=== PATIENT | male | born 1970 | race Hispanic/Latino ===

== ENCOUNTER → 2017-01-22 | Outpatient (CLI) | payer MEDICARE, OTHER ==
[~2017-01-22] MED LIST: BACT800T OR; CEPACOL OR; COLA100C2 OR; PERC5TAB8 OR
== END ==
LOC: M OUTALCOH 07:43
PROVIDERS: ATTEND Psychiatry & Neurology Psychiatry
DX: Z13.9 Encounter for screening, unspecified (principal); F10.20 Alcohol dependence, uncomplicated

== ENCOUNTER → 2017-02-20 | Outpatient (RCR) | payer MEDICARE, OTHER | LOC: M OUTALCOH 01-31 14:00 | PROVIDERS: ATTEND Psychiatry & Neurology Psychiatry | DX: F10.20 Alcohol dependence, uncomplicated (principal) ==

== ENCOUNTER 2017-03-20 15:00 | Outpatient (RCR) | payer MEDICARE, OTHER | END 2017-03-22 | LOC: M OUTALCOH 15:00 | PROVIDERS: ATTEND Psychiatry & Neurology Psychiatry | DX: F10.20 Alcohol dependence, uncomplicated (principal) ==

== ENCOUNTER 2017-04-17 15:00 | Outpatient (RCR) | payer MEDICARE, OTHER | END 2017-04-22 | LOC: M OUTALCOH 15:00 | PROVIDERS: ATTEND Psychiatry & Neurology Psychiatry | DX: F10.20 Alcohol dependence, uncomplicated (principal) ==

== ENCOUNTER 2017-05-01 12:14 | Outpatient (RCR) | payer MEDICARE, OTHER | END 2017-05-23 | LOC: M OUTALCOH 12:14 | PROVIDERS: ATTEND Psychiatry & Neurology Psychiatry | DX: F10.20 Alcohol dependence, uncomplicated (principal) ==

== ENCOUNTER → 2018-12-09 | Outpatient (CLI) | payer MEDICARE, OTHER ==
[2018-12-09 10:09] LABS: BASO # 0.1 10^3/uL (0.0-0.2); BASO % 1.2 % (0.0-1.0); EOS # 0.1 10^3/uL (0.0-0.50); EOS % 2.9 % (0.0-3.0); HEMATOCRIT 41.2 % (42.0-52.0); HEMOGLOBIN 14.4 g/dl (13.5-17.5); LYMPH # 1.4 10^3/uL (1.5-4.5); LYMPH % 34.7 % (24.0-44.0); MEAN CORPUSCULAR HEMOGLOBIN 31.4 pg (27.0-33.0); MEAN CORPUSCULAR VOLUME 89.8 fl (80.0-96.0); MONO # 0.5 10^3/uL (0.0-0.8); MONO % 12.8 % (0.0-5.0); NEUTROPHILS % 48.2 % (36.0-66.0); PLATELET COUNT, AUTOMATED 208 10^3/uL (150-450); RED BLOOD COUNT 4.59 10^6/uL (4.30-6.10); WHITE BLOOD COUNT 4.2 10^3/uL (4.0-10.0)
[2018-12-09 10:50] LABS: ALBUMIN 3.7 GM/DL (3.2-5.2); ALT/SGPT 110 U/L (12-78); BILIRUBIN,TOTAL 0.5 MG/DL (0.2-1.0); BLOOD UREA NITROGEN 12 MG/DL (7-18); CALCIUM LEVEL 8.7 MG/DL (8.5-10.1); CARBON DIOXIDE LEVEL 28 MEQ/L (21-32); CHLORIDE LEVEL 105 MEQ/L (98-107); CREATININE FOR GFR 0.81 MG/DL (0.70-1.30); FOLATE 14.8 NG/ML; GLOMERULAR FILTRATION RATE > 60.0 (>60); GLUCOSE, FASTING 97 MG/DL (70-100); POTASSIUM SERUM 4.2 MEQ/L (3.5-5.1); RHEUMATOID FACTOR QUANT < 10.0 IU/ML (<15.0); SODIUM LEVEL 138 MEQ/L (136-145); TOTAL PROTEIN 7.5 GM/DL (6.4-8.2); VITAMIN B12 LEVEL 730 PG/ML
[2018-12-09 11:34] LABS: ERYTHROCYTE SEDIMENTATION RATE 10 mm/hr (0-15)
[2018-12-10 10:43] LABS: DRVV SCREEN 40.9 SEC
[2018-12-10 11:22] LABS: ANTI DOUBLE STRAND-DNA AB 1 IU/mL (0-9); ANTINUCLEAR ANTIBODIES DIRECT Negative (Negative); SJOGREN'S ANTI SS-A <0.2 AI (0.0-0.9); SJOGREN'S ANTI SS-B <0.2 AI (0.0-0.9)
[2018-12-11 10:27] LABS: ALBUMIN 4.19 GM/DL (3.29-5.55); ALBUMIN % 55.8 % (55.8-66.1); ALPHA-1-GLOBULIN % 3.5 % (2.9-4.9); ALPHA-1-GLOBULINS 0.26 GM/DL (0.17-0.41); ALPHA-2-GLOBULINS 0.73 GM/DL (0.42-0.99); ALPHA-2-GLOBULINS % 9.7 % (7.1-11.8); BETA-1-GLOBULINS % 6.6 % (4.7-7.2); BETA-2-GLOBULINS 0.49 GM/DL (0.19-0.55); BETA-2-GLOBULINS % 6.5 % (3.2-6.5); GAMMA GLOBULIN % 17.9 % (11.1-18.8); GAMMA GLOBULINS 1.34 GM/DL (0.65-1.58)
[2018-12-12 08:06] LABS: VITAMIN E(ALPHA TOCOPHEROL) 7.5 mg/L (7.0-25.1); VITAMIN E(GAMMA TOCOPHEROL) 1.3 mg/L (0.5-5.5)
[2018-12-13 08:06] LABS: VITAMIN B1 LEVEL WHOLE BLOOD 91.5 nmol/L (66.5-200.0); VITAMIN B6,PYRIDOXAL PHOSPHATE 19.3 ug/L (5.3-46.7)
== END ==
LOC: M LAB 09:21
PROVIDERS: ATTEND Psychiatry & Neurology Neurology
DX: R51 Headache (principal); G31.84 Mild cognitive impairment of uncertain or unknown etiology

== ENCOUNTER → 2018-12-11 | Outpatient (CLI) | payer MEDICARE, OTHER ==
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
== END ==
LOC: M RAD 10:43
PROVIDERS: ATTEND Psychiatry & Neurology Neurology
DX: Z87.821 Personal history of retained foreign body fully removed (principal); M89.38 Hypertrophy of bone, other site; S70.2 Other superficial injuries of hip; X58.XXXD Exposure to other specified factors, subsequent encounter; Y92.89 Other specified places as the place of occurrence of the external cause

== ENCOUNTER → 2019-01-16 | Outpatient (CLI) | payer MEDICARE, OTHER ==
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
== END ==
LOC: M PLARAD 09:09
PROVIDERS: ATTEND Psychiatry & Neurology Neurology
DX: S15.8XXA Injury of other specified blood vessels at neck level, initial encounter (principal); X58.XXXA Exposure to other specified factors, initial encounter; Y92.89 Other specified places as the place of occurrence of the external cause; G44.209 Tension-type headache, unspecified, not intractable; R41.3 Other amnesia; I67.82 Cerebral ischemia; I77.9 Disorder of arteries and arterioles, unspecified

== ENCOUNTER → 2019-09-07 | Outpatient (CLI) | payer MEDICARE, OTHER, MEDICAID ==
--- NOTE | 2019-09-07 10:49 | REP ---
MRI cervical spine: 09/07/2019. Indication: Neck pain. Comparison: None. Technique: Multiplanar shortened long TR sequences of the cervical spine were obtained without IV Gadolinium. Findings: There is straightening of the cervical lordosis. The patient is status post C4 - C7 ACDF. No worrisome marrow or cord signal is present. The vertebral artery flow voids are unremarkable. C2/C3: Left greater than right facet arthropathy is present with severe left neural foraminal narrowing. C3/C4: Diffuse disc bulge and bilateral facet arthropathy are present with moderate to severe bilateral neural foraminal narrowing, more pronounced on the left. There is mild narrowing of the spinal canal. C4/C5: There is no focal disc herniation or significant spinal canal / neural foraminal narrowing. C5/C6: There is a left paracentral disc protrusion with flattening of the left ventral lateral cord. The neural foramen are patent. C6/C7: Left greater than right uncovertebral and facet hypertrophy are present with moderate to severe left neural foraminal narrowing. C7/T1: There is no focal disc herniation or significant spinal canal / neural foraminal narrowing. Impression: Multilevel degenerative and postoperative sequelae as described without severe spinal canal narrowing. Electronically Signed by Ishmael Gibbs DO 09/07/2019 10:41 A
== END ==
LOC: M RAD 07:10
PROVIDERS: ATTEND Orthopaedic Surgery
DX: M54.12 Radiculopathy, cervical region (principal)

== ENCOUNTER → 2020-04-26 | Outpatient (CLI) | payer MEDICARE, OTHER, MEDICAID | LOC: M OUTALCOH 09:00 | PROVIDERS: ATTEND Psychiatry & Neurology Addiction Medicine | DX: Z03.89 Encounter for observation for other suspected diseases and conditions ruled out (principal) ==

== ENCOUNTER 2020-05-19 10:00 | Outpatient (RCR) | payer MEDICARE, OTHER, MEDICAID | END 2020-05-23 | LOC: M OUTALCOH 10:00 | PROVIDERS: ATTEND Psychiatry & Neurology Addiction Medicine | DX: F10.20 Alcohol dependence, uncomplicated (principal) | CPT/HCPCS: 90834; 90853; H0050 ==

== ENCOUNTER 2020-06-17 13:00 | Outpatient (RCR) | payer MEDICARE, OTHER, MEDICAID | END 2020-06-22 | LOC: M OUTALCOH 13:00 | PROVIDERS: ATTEND Psychiatry & Neurology Addiction Medicine | DX: F10.20 Alcohol dependence, uncomplicated (principal) ==

== ENCOUNTER 2020-07-20 08:00 | Outpatient (RCR) | payer MEDICARE, OTHER, MEDICAID | END 2020-07-23 | LOC: M OUTALCOH 08:00 | PROVIDERS: ATTEND Psychiatry & Neurology Addiction Medicine | DX: F10.20 Alcohol dependence, uncomplicated (principal) ==

== ENCOUNTER 2020-08-15 08:00 | Outpatient (RCR) | payer MEDICARE, OTHER, MEDICAID | END 2020-08-22 | LOC: M OUTALCOH 08:00 | PROVIDERS: ATTEND Psychiatry & Neurology Addiction Medicine | DX: F10.10 Alcohol abuse, uncomplicated (principal) ==

== ENCOUNTER → 2020-08-27 | Outpatient (CLI) | payer SELFPAY | LOC: M LABSMTC 10:30 | PROVIDERS: ATTEND Pediatrics | DX: Z20.828 Contact with and (suspected) exposure to other viral communicable diseases (principal) ==

== ENCOUNTER → 2020-10-02 | Outpatient (CLI) | payer SELFPAY | LOC: M LABSMTC 08:34 | PROVIDERS: ATTEND Pediatrics | DX: Z20.822 Contact with and (suspected) exposure to COVID-19 (principal) ==

== ENCOUNTER 2020-11-24 00:43 | Emergency (ER) | payer MEDICARE, OTHER, MEDICAID ==
[~2020-11-24] VITALS: Ht 167.6 cm; Wt 84.1 kg
[2020-11-24] MEDS ORDERED: LAMO100T3 PO (01:11)
[2020-11-24] MEDS ORDERED: RITA40CA PO (01:11)
[2020-11-24] MEDS ORDERED: PRAZ5CAP PO (01:11)
[2020-11-24 01:44] LABS: BASO # 0.1 10^3/uL (0.0-0.2); BASO % 0.8 % (0.0-1.0); EOS # 0.1 10^3/uL (0.0-0.5); EOS % 0.9 % (0.0-3.0); HEMATOCRIT 39.2 % (42.0-52.0); HEMOGLOBIN 13.6 g/dl (13.5-17.5); LYMPH % 31.1 % (24.0-44.0); MEAN CORPUSCULAR HEMOGLOBIN 30.4 pg (27.0-33.0); MEAN CORPUSCULAR HGB CONC 34.7 g/dl (32.0-36.5); MEAN CORPUSCULAR VOLUME 87.7 fl (80.0-96.0); MONO # 0.5 10^3/uL (0.0-0.8); MONO % 7.2 % (2.0-8.0); NEUTROPHILS # 3.9 10^3/uL (1.5-8.5); NEUTROPHILS % 59.5 % (36.0-66.0); PLATELET COUNT, AUTOMATED 205 10^3/uL (150-450); RED BLOOD COUNT 4.47 10^6/uL (4.30-6.10); WHITE BLOOD COUNT 6.5 10^3/uL (4.0-10.0)
[2020-11-24 02:09] LABS: BLOOD UREA NITROGEN 15 MG/DL (7-18); CALCIUM LEVEL 8.7 MG/DL (8.5-10.1); CARBON DIOXIDE LEVEL 29 MEQ/L (21-32); CHLORIDE LEVEL 102 MEQ/L (98-107); CK-MB VALUE MASS 2.2 NG/ML (<3.6); CPK CREATINE PHOSPHOKINASE 278 U/L (39-308); CREATININE FOR GFR 0.83 MG/DL (0.70-1.30); ETHYL ALCOHOL (ETHANOL) < 0.003 % (0.000-0.010); GLOMERULAR FILTRATION RATE > 60.0 (>56); GLUCOSE, FASTING 151 MG/DL (70-100); MB/CK RELATIVE INDEX 0.79 (< OR =4); POTASSIUM SERUM 2.9 MEQ/L (3.5-5.1); SODIUM LEVEL 137 MEQ/L (136-145); TROPONIN I < 0.02 NG/ML (< 0.10)
--- NOTE | 2020-11-24 02:09 | REPVR ---
PROCEDURE INFORMATION: Exam: XR Chest Exam date and time: 11/24/2020 1:44 AM Age: 50 years old Clinical indication: Other: Dyspnea; Additional info: Dyspnea/cough TECHNIQUE: Imaging protocol: XR of the chest Views: 1 view. COMPARISON: No relevant prior studies available. FINDINGS: Lungs: Unremarkable. No consolidation. Pleural spaces: Unremarkable. No pleural effusion. No pneumothorax. Heart/Mediastinum: Unremarkable. No cardiomegaly. Bones/joints: Status post anterior cervical fusion. IMPRESSION: Negative chest. Electronically signed by: Brandan Song On 11/24/2020 02:10:28 AM
[2020-11-24] MEDS ORDERED: POTASSIUM CHLORIDE 10 MEQ SR TABLET PO ONE (02:35)
[2020-11-24 04:41] LABS: CK-MB VALUE MASS 1.9 NG/ML (<3.6); CPK CREATINE PHOSPHOKINASE 249 U/L (39-308); MB/CK RELATIVE INDEX 0.76 (< OR =4); TROPONIN I < 0.02 NG/ML (< 0.10)
[2020-11-24] MEDS ORDERED: ISOVUE-370 76% 100ML VIAL As Ordered ONE (04:48)
--- NOTE | 2020-11-24 05:11 | REPVR ---
PROCEDURE INFORMATION: Exam: CT Angiography Chest With Contrast Exam date and time: 11/24/2020 4:43 AM Age: 50 years old Clinical indication: Shortness of breath; Additional info: R/O pe TECHNIQUE: Imaging protocol: Computed tomographic angiography of the chest with contrast. 3D rendering (Not supervised by radiologist): MIP and/or 3D reconstructed images were created by the technologist. Radiation optimization: All CT scans at this facility use at least one of these dose optimization techniques: automated exposure control; mA and/or kV adjustment per patient size (includes targeted exams where dose is matched to clinical indication); or iterative reconstruction. Contrast material: ISO; Contrast volume: 75 ml; Contrast route: INTRAVENOUS (IV); COMPARISON: CR PORTABLE CHEST X-RAY 11/24/2020 1:45 AM FINDINGS: Pulmonary arteries: The main pulmonary artery measures 30 mm. No pulmonary embolism is identified. Aorta: The ascending thoracic aorta measures 31 mm. Lungs: Minimal bilateral lower lobe ground-glass infiltrates. Pleural spaces: Unremarkable. No pneumothorax. No pleural effusion. Heart: Unremarkable. No cardiomegaly. No pericardial effusion. Lymph nodes: Unremarkable. No enlarged lymph nodes. Liver: Probable left hepatic cyst measuring 30 mm with a Hounsfield measurement of 6. The liver attenuation is 13 Hounsfield units and the spleen is 59 Hounsfield units. Bones/joints: Unremarkable. No acute fracture. Soft tissues: Unremarkable. IMPRESSION: 1. Minimal bilateral lower lobe ground-glass infiltrates and possible dependent atelectasis. 2. Fatty infiltration of the liver. 3. Otherwise negative CTA chest. No pulmonary embolism is identified. Electronically signed by: Brandan Song On 11/24/2020 05:12:11 AM
[2020-11-24] MEDS ORDERED: K-TA1TAB PO (05:23)
[2020-11-24 05:30] VITALS: BP 141/71
--- NOTE | 2020-11-25 08:02 | ECGEPIP ---
[facility] - ED Test Date: 2020-11-24 Pat Name: AURA ROSARIO Department: Room: - Gender: Male Quantitative Analyst: SHAYY : 1970 Requested By: Reza Childers Order Number: [id number] Reading MD: Shruti Lynn Measurements Intervals [place] Rate: 92 P: 60 NC: 140 QRS: -15 QRSD: 94 T: 30 QT: 390 QTc: 482 Interpretive Statements Normal sinus rhythm NSTTW abnormalities Prolonged QT similar 11/24/20 0800 Electronically Signed on 11-25-2020 8:02:32 EST by Shruti Lynn
--- NOTE | 2020-11-25 08:02 | ECGEPIP ---
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
== END 2020-11-24 05:36 | disposition home or self-care (01) ==
LOC: M ED 00:43
DX: R06.00 Dyspnea, unspecified (principal); E87.6 Hypokalemia; K76.0 Fatty (change of) liver, not elsewhere classified; R42 Dizziness and giddiness; F10.10 Alcohol abuse, uncomplicated; F90.9 Attention-deficit hyperactivity disorder, unspecified type; F33.9 Major depressive disorder, recurrent, unspecified; Z88.6 Allergy status to analgesic agent; Z79.899 Other long term (current) drug therapy
CPT/HCPCS: 36415; 71045; 71275; 80048; 82077; 82550; 82553; 84484; 85025; 93005; 93041; 94760; 99285; Q9967

== ENCOUNTER 2020-12-06 00:38 | Emergency (ER) | payer MEDICARE, OTHER, MEDICAID ==
[~2020-12-06] VITALS: Ht 162.6 cm; Wt 81.8 kg
[~2020-12-06 00:38] MED LIST changes: +K-TA1TAB PO; +LAMO100T3 PO; +PRAZ5CAP PO; +RITA40CA PO
[2020-12-06] MEDS ORDERED: hydrOXYzine 25 MG TAB PO STA (01:13)
[2020-12-06 01:32] LABS: BASO # 0.1 10^3/uL (0.0-0.2); BASO % 1.1 % (0.0-1.0); EOS # 0.1 10^3/uL (0.0-0.5); EOS % 1.7 % (0.0-3.0); HEMATOCRIT 40.3 % (42.0-52.0); HEMOGLOBIN 14.4 g/dl (13.5-17.5); LYMPH # 2.1 10^3/uL (1.5-5.0); MEAN CORPUSCULAR HGB CONC 35.7 g/dl (32.0-36.5); MEAN CORPUSCULAR VOLUME 89.6 fl (80.0-96.0); MONO # 0.5 10^3/uL (0.0-0.8); MONO % 8.3 % (2.0-8.0); NEUTROPHILS # 3.5 10^3/uL (1.5-8.5); NEUTROPHILS % 55.7 % (36.0-66.0); PLATELET COUNT, AUTOMATED 237 10^3/uL (150-450); WHITE BLOOD COUNT 6.3 10^3/uL (4.0-10.0)
[2020-12-06 01:42] LABS: INR 0.98; PROTHROMBIN TIME 13.2 SECONDS (12.5-14.3)
[2020-12-06 02:08] LABS: ALBUMIN 3.5 GM/DL (3.2-5.2); ALT/SGPT 77 U/L (12-78); BILIRUBIN,DIRECT < 0.1 MG/DL (0.0-0.2); BILIRUBIN,TOTAL 0.3 MG/DL (0.2-1.0); BLOOD UREA NITROGEN 12 MG/DL (7-18); CALCIUM LEVEL 8.8 MG/DL (8.5-10.1); CARBON DIOXIDE LEVEL 29 MEQ/L (21-32); CHLORIDE LEVEL 103 MEQ/L (98-107); CK-MB VALUE MASS < 1.0 NG/ML (<3.6); CPK CREATINE PHOSPHOKINASE 144 U/L (39-308); CREATININE FOR GFR 0.81 MG/DL (0.70-1.30); GLOMERULAR FILTRATION RATE > 60.0 (>56); GLUCOSE, FASTING 152 MG/DL (70-100); MB/CK RELATIVE INDEX 0.69 (< OR =4); NT-PRO BNP 12 PG/ML (<125); POTASSIUM SERUM 3.6 MEQ/L (3.5-5.1); SODIUM LEVEL 137 MEQ/L (136-145); THYROXINE (T4) 8.5 UG/DL (4.5-12.0); TOTAL PROTEIN 6.9 GM/DL (6.4-8.2); TROPONIN I < 0.02 NG/ML (< 0.10)
--- NOTE | 2020-12-06 02:19 | REPVR ---
PROCEDURE INFORMATION: Exam: XR Chest Exam date and time: 12/06/2020 1:49 AM Age: 50 years old Clinical indication: Cough and dyspnea; Additional info: Dyspnea/cough TECHNIQUE: Imaging protocol: XR of the chest Views: 1 view. COMPARISON: CR PORTABLE CHEST X-RAY 11/24/2020 1:45 AM FINDINGS: Lungs: The lungs are unchanged. No interval infiltrates. Pleural spaces: Unremarkable. No pleural effusion. No pneumothorax. Heart/Mediastinum: The heart and mediastinum are unchanged considering lordotic projection. Bones/joints: Status post anterior fusion of the cervical spine. IMPRESSION: Negative chest without significant change from 11/24/2020. Electronically signed by: Brandan Song On 12/06/2020 02:19:19 AM
[2020-12-06 03:15] VITALS: BP 125/59
--- NOTE | 2020-12-06 08:10 | ECGEPIP ---
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
== END 2020-12-06 03:15 | disposition home or self-care (01) ==
LOC: M ED 00:38
DX: F41.9 Anxiety disorder, unspecified (principal); E78.5 Hyperlipidemia, unspecified; G47.33 Obstructive sleep apnea (adult) (pediatric); F43.10 Post-traumatic stress disorder, unspecified; Z88.6 Allergy status to analgesic agent; Z79.899 Other long term (current) drug therapy; Z87.891 Personal history of nicotine dependence

== ENCOUNTER 2021-04-13 06:35 | Emergency (ER) | payer MEDICARE, OTHER, MEDICAID ==
[~2021-04-13] VITALS: Ht 162.6 cm; Wt 87.4 kg
[2021-04-13 10:05] VITALS: BP 149/83
--- NOTE | 2021-04-13 17:33 | ECGEPIP ---
[facility] - ED Test Date: 2021-04-13 Pat Name: AURA ROSARIO Department: Room: - Gender: Male Data Security Coordinator: MANPREET : 1970 Requested By: Shruti Lynn Order Number: [id number] Reading MD: Samir Garcia Measurements Intervals [place] Rate: 70 P: 25 [place]: 144 QRS: -19 QRSD: 100 T: 1 QT: 424 QTc: 457 Interpretive Statements Normal sinus rhythm Nonspecific T wave abnormality Similar to tracing done 12-06-20 Electronically Signed on 04-13-2021 17:33:03 EDT by Samir Garcia
== END 2021-04-13 10:10 | disposition home or self-care (01) ==
LOC: M ED 06:35
DX: F43.0 Acute stress reaction (principal); Z79.899 Other long term (current) drug therapy; Z93.3 Colostomy status; Z87.891 Personal history of nicotine dependence

== ENCOUNTER 2021-04-21 17:34 | Emergency (ER) | payer MEDICARE, OTHER, MEDICAID ==
[~2021-04-21] VITALS: Ht 162.6 cm; Wt 86.4 kg
[2021-04-21] MEDS ORDERED: TRAZ1TAB14 PO (17:57)
[2021-04-21] MEDS ORDERED: ATOR40TA75 PO (17:58)
[2021-04-21 18:22] LABS: BASO # 0.1 10^3/uL (0.0-0.2); BASO % 1.4 % (0.0-1.0); EOS % 0.3 % (0.0-3.0); HEMATOCRIT 43.1 % (42.0-52.0); HEMOGLOBIN 15.3 g/dl (13.5-17.5); LYMPH # 1.3 10^3/uL (1.5-5.0); LYMPH % 18.6 % (24.0-44.0); MEAN CORPUSCULAR HEMOGLOBIN 31.9 pg (27.0-33.0); MEAN CORPUSCULAR HGB CONC 35.5 g/dl (32.0-36.5); MONO # 0.6 10^3/uL (0.0-0.8); MONO % 7.9 % (2.0-8.0); NEUTROPHILS % 71.7 % (36.0-66.0); PLATELET COUNT, AUTOMATED 209 10^3/uL (150-450); RED BLOOD COUNT 4.79 10^6/uL (4.30-6.10)
[2021-04-21 18:48] LABS: BLOOD UREA NITROGEN 13 MG/DL (7-18); CALCIUM LEVEL 8.9 MG/DL (8.5-10.1); CARBON DIOXIDE LEVEL 27 MEQ/L (21-32); CHLORIDE LEVEL 103 MEQ/L (98-107); CREATININE FOR GFR 0.74 MG/DL (0.70-1.30); GLOMERULAR FILTRATION RATE > 60.0 (>56); GLUCOSE, FASTING 111 MG/DL (70-100); SODIUM LEVEL 138 MEQ/L (136-145)
[2021-04-21] MEDS ORDERED: ISOVUE-370 76% 100ML VIAL As Ordered ONE (18:52)
[2021-04-21 19:47] LABS: ALBUMIN 3.7 GM/DL (3.2-5.2); ALT/SGPT 282 U/L (12-78); BILIRUBIN,DIRECT 0.2 MG/DL (0.0-0.2); BILIRUBIN,TOTAL 0.8 MG/DL (0.2-1.0); ETHYL ALCOHOL (ETHANOL) < 0.003 % (0.000-0.010); TOTAL PROTEIN 7.5 GM/DL (6.4-8.2)
[2021-04-21] MEDS ORDERED: GI COCKTAIL 50ML BTL(HYOSCYAMINE/MAALOX/LIDOCAINE VISCOUS)(1:3:1) PO ONE (22:25)
[2021-04-22 02:00] VITALS: BP 132/82
== END 2021-04-22 02:13 | disposition home or self-care (01) ==
LOC: M ED 17:34 → EDBD 17:34 → M ED 04-22 02:13
DX: R07.9 Chest pain, unspecified (principal); K76.0 Fatty (change of) liver, not elsewhere classified; J44.9 Chronic obstructive pulmonary disease, unspecified; Z88.6 Allergy status to analgesic agent
CPT/HCPCS: 36415; 71045; 71275; 80048; 80076; 82077; 84484; 85025; 93005; 93041; 94760; 99285; Q9967

== ENCOUNTER 2021-05-10 16:24 | Emergency (ER) | payer MEDICARE, OTHER, MEDICAID ==
[~2021-05-10] VITALS: Ht 162.6 cm; Wt 83.6 kg
[2021-05-10 16:24] VITALS: BP 190/96
[~2021-05-10 16:24] MED LIST changes: +ATOR40TA75 PO; +TRAZ1TAB14 PO
== END 2021-05-10 17:59 | disposition left against medical advice (07) ==
LOC: M ED 16:24
DX: Z53.21 Procedure and treatment not carried out due to patient leaving prior to being seen by health care provider (principal)

== ENCOUNTER 2021-05-10 20:55 | Emergency (ER) | payer MEDICARE, OTHER, MEDICAID ==
[~2021-05-10] VITALS: Ht 162.6 cm; Wt 84.0 kg
[2021-05-10 21:55] LABS: BASO # 0.1 10^3/uL (0.0-0.2); BASO % 1.1 % (0.0-1.0); HEMATOCRIT 43.6 % (42.0-52.0); HEMOGLOBIN 15.4 g/dl (13.5-17.5); LYMPH # 1.4 10^3/uL (1.5-5.0); LYMPH % 17.5 % (24.0-44.0); MEAN CORPUSCULAR HEMOGLOBIN 31.8 pg (27.0-33.0); MEAN CORPUSCULAR HGB CONC 35.3 g/dl (32.0-36.5); MEAN CORPUSCULAR VOLUME 89.9 fl (80.0-96.0); MONO # 0.6 10^3/uL (0.0-0.8); MONO % 7.6 % (2.0-8.0); NEUTROPHILS # 5.8 10^3/uL (1.5-8.5); NEUTROPHILS % 73.5 % (36.0-66.0); PLATELET COUNT, AUTOMATED 255 10^3/uL (150-450); RED BLOOD COUNT 4.85 10^6/uL (4.30-6.10); WHITE BLOOD COUNT 7.9 10^3/uL (4.0-10.0)
[2021-05-10 22:09] LABS: INR 1.09; PROTHROMBIN TIME 14.5 SECONDS (12.7-14.5)
[2021-05-10 22:27] LABS: ALT/SGPT 167 U/L (12-78); BILIRUBIN,DIRECT 0.2 MG/DL (0.0-0.2); BILIRUBIN,TOTAL 0.9 MG/DL (0.2-1.0); BLOOD UREA NITROGEN 11 MG/DL (7-18); CALCIUM LEVEL 9.3 MG/DL (8.5-10.1); CARBON DIOXIDE LEVEL 27 MEQ/L (21-32); CHLORIDE LEVEL 101 MEQ/L (98-107); CK-MB VALUE MASS 2.6 NG/ML (<3.6); CPK CREATINE PHOSPHOKINASE 361 U/L (39-308); CREATININE FOR GFR 0.78 MG/DL (0.70-1.30); GLOMERULAR FILTRATION RATE > 60.0 (>56); GLUCOSE, FASTING 106 MG/DL (70-100); LIPASE 97 U/L (73-393); MB/CK RELATIVE INDEX 0.72 (< OR =4); POTASSIUM SERUM 3.8 MEQ/L (3.5-5.1); SODIUM LEVEL 137 MEQ/L (136-145); TOTAL PROTEIN 7.7 GM/DL (6.4-8.2); TROPONIN I < 0.02 NG/ML (< 0.10)
--- NOTE | 2021-05-10 23:29 | REPVR ---
PROCEDURE INFORMATION: Exam: XR Chest Exam date and time: 05/10/2021 10:58 PM Age: 51 years old Clinical indication: Chest wall pain; Additional info: Chest pain TECHNIQUE: Imaging protocol: XR of the chest. Views: 1 view. COMPARISON: CR PORTABLE CHEST X-RAY 04/21/2021 6:12 PM FINDINGS: Lungs: There is no pulmonary vascular congestion. There is no evidence of focal parenchymal consolidation. Pleural spaces: There are no pleural effusions. There is no evidence of pneumothorax. Heart/Mediastinum: The cardiac silhouette is within normal limits. Bones/joints: No acute osseous abnormality is identified. IMPRESSION: No acute cardiopulmonary disease identified. Electronically signed by: Brooke Mcfarland On 05/10/2021 23:29:04 PM
[2021-05-11] MEDS ORDERED: LORazepam 2 MG/ML VIAL IV STA (02:55)
[2021-05-11] MEDS ORDERED: LORazepam 2 MG/ML VIAL As Ordered ONE (02:59)
[2021-05-11 06:00] VITALS: BP 139/88
--- NOTE | 2021-05-12 06:37 | ECGEPIP ---
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
== END 2021-05-11 06:22 | disposition home or self-care (01) ==
LOC: M ED 20:55
DX: F41.0 Panic disorder [episodic paroxysmal anxiety] (principal); Z88.6 Allergy status to analgesic agent; Z79.899 Other long term (current) drug therapy
CPT/HCPCS: 71045; 80048; 80076; 82550; 82553; 83690; 84484; 85025; 85610; 93005; 96374; 99285; J2060

== ENCOUNTER 2023-02-17 11:55 | Emergency (ER) | payer MEDICARE, MEDICAID ==
[~2023-02-17] VITALS: Ht 162.6 cm; Wt 68.9 kg
[2023-02-17] MEDS ORDERED: BOOSTRIX VACCINE (TETANUS/DIPHTH/ACEL. PERTUSSIS) 0.5ML SYR IM.IMMUN ONE (12:05)
[2023-02-17] MEDS ORDERED: CEPH500C PO (12:07)
[2023-02-17 12:27] LABS: HEMATOCRIT 36.6 % (42.0-52.0); HEMOGLOBIN 12.5 g/dl (13.5-17.5); MEAN CORPUSCULAR HEMOGLOBIN 32.8 pg (27.0-33.0); MEAN CORPUSCULAR HGB CONC 34.2 g/dl (32.0-36.5); MEAN CORPUSCULAR VOLUME 96.1 fl (80.0-96.0); PLATELET COUNT, AUTOMATED 175 10^3/uL (150-450); RED BLOOD COUNT 3.81 10^6/uL (4.30-6.10); WHITE BLOOD COUNT 5.1 10^3/uL (4.0-10.0)
[2023-02-17] MEDS ORDERED: MORPHINE 4 MG/ML 1ML VIAL IV PRN (12:45)
[2023-02-17] MEDS ORDERED: LIDOCAINE 2% W/EPINEPHRINE 20ML VIAL **PRES FREE INJ ONE (13:30)
[2023-02-17] MEDS ORDERED: BACITRACIN OINTMENT 30GM TUBE TOP STA (13:41)
[2023-02-17 13:45] VITALS: BP 126/65
[2023-02-17 14:29] VITALS: O2SAT 96
== END 2023-02-17 14:50 | disposition home or self-care (01) ==
LOC: EDBD 11:55 → EDSEX 11:55 → M ED 11:55
DX: S81.812A Laceration without foreign body, left lower leg, initial encounter (principal); S50.812A Abrasion of left forearm, initial encounter; V21.01XA Electric (assisted) bicycle driver injured in collision with pedal cycle in nontraffic accident, initial encounter; Z88.6 Allergy status to analgesic agent; Z79.2 Long term (current) use of antibiotics; Z79.899 Other long term (current) drug therapy

== ENCOUNTER 2023-12-20 13:30 | Observation (INO) | payer MEDICARE, OTHER ==
[~2023-12-20] VITALS: Ht 162.6 cm; Wt 76.0 kg
[~2023-12-20 13:30] MED LIST changes: +CEPH500C PO
[2023-12-20 14:19] LABS: BASO # 0.1 10^3/uL (0.0-0.2); BASO % 1.9 % (0.0-1.0); EOS % 0.7 % (0.0-3.0); HEMATOCRIT 26.8 % (42.0-52.0); HEMOGLOBIN 9.2 g/dl (13.5-17.5); LYMPH # 0.8 10^3/uL (1.5-5.0); LYMPH % 19.6 % (24.0-44.0); MEAN CORPUSCULAR HEMOGLOBIN 34.1 pg (27.0-33.0); MEAN CORPUSCULAR HGB CONC 34.3 g/dl (32.0-36.5); MEAN CORPUSCULAR VOLUME 99.3 fl (80.0-96.0); MONO # 0.5 10^3/uL (0.0-0.8); MONO % 10.8 % (2.0-8.0); NEUTROPHILS # 2.8 10^3/uL (1.5-8.5); NEUTROPHILS % 66.1 % (36.0-66.0); PLATELET COUNT, AUTOMATED 190 10^3/uL (150-450); WHITE BLOOD COUNT 4.2 10^3/uL (4.0-10.0)
[2023-12-20 14:51] LABS: LIPASE 73 U/L (12-53)
[2023-12-20 14:53] LABS: ALBUMIN 3.4 G/DL (3.2-5.2); ALKALINE PHOSPHATASE 53 U/L (46-116); ALT/SGPT 67 U/L (7.0-40); AST/SGOT 115 U/L (<34); BILIRUBIN,DIRECT 0.6 MG/DL (<0.4); BILIRUBIN,TOTAL 1.2 MG/DL (0.3-1.2); BLOOD UREA NITROGEN 9 MG/DL (9-23); CALCIUM LEVEL 9.1 MG/DL (8.5-10.1); CARBON DIOXIDE LEVEL 30 MMOL/L (20-31); CHLORIDE LEVEL 104 MMOL/L (98-107); CREATININE FOR GFR 0.52 MG/DL (0.70-1.30); GLOMERULAR FILTRATION RATE > 60.0 (>56); GLUCOSE, FASTING 115 MG/DL (60-100); POTASSIUM SERUM 3.1 MMOL/L (3.5-5.1); SODIUM LEVEL 140 MMOL/L (136-145); TOTAL PROTEIN 7.6 G/DL (5.7-8.2)
[2023-12-20] MEDS ORDERED: ISOVUE-370 76% 100ML VIAL As Ordered ONE (14:59)
[2023-12-20] MEDS: MORPHINE 2 MG/ML 1ML VIAL IV PRN (15:21)
[2023-12-20] MEDS: NS 500 ML IV ONE ×2 (15:22→15:35)
[2023-12-20 16:05] LABS: INR 1.3; PARTIAL THROMBOPLASTIN TIME 29.1 SECONDS (24.8-34.2); PROTHROMBIN TIME 15.8 SECONDS (12.5-14.5)
[2023-12-20 16:16] LABS: RSV AMPLIFICATION NEGATIVE (NEGATIVE)
[2023-12-20] MEDS ORDERED: HOME MED LIST COMPLETE! XX SCH (16:40)
[2023-12-20] MEDS: LORazepam 2 MG TAB PO PRN (17:31)
[2023-12-20] MEDS ORDERED: KETOROLAC 30 MG/ML 1ML VIAL IV PRN (18:05)
[2023-12-20] MEDS: FUROSEMIDE 40MG/4ML VIAL IV ONE (18:05)
[2023-12-20 19:43] LABS: MAGNESIUM LEVEL 1.3 MG/DL (1.8-2.4)
[2023-12-20] MEDS ORDERED: THIAMINE 100 MG TAB PO SCH (21:00)
[2023-12-20] MEDS: POTASSIUM CHLORIDE 10MEQ SR TABLET PO SCH (21:06)
[2023-12-20 21:39] VITALS: BP 112/66; TEMP 98.2; O2SAT 98
[2023-12-20] MEDS: OXAZEPAM 10MG CAP PO SCH (22:14)
[2023-12-21 00:01] LABS: BLOOD UREA NITROGEN 9 MG/DL (9-23); CALCIUM LEVEL 8.4 MG/DL (8.5-10.1); CARBON DIOXIDE LEVEL 28 MMOL/L (20-31); CHLORIDE LEVEL 103 MMOL/L (98-107); CREATININE FOR GFR 0.48 MG/DL (0.70-1.30); GLOMERULAR FILTRATION RATE > 60.0 (>56); GLUCOSE, FASTING 145 MG/DL (60-100); POTASSIUM SERUM 3.1 MMOL/L (3.5-5.1); SODIUM LEVEL 137 MMOL/L (136-145)
[2023-12-21] MEDS: KCL 10MEQ/100ML SWI (KRUN) 10 MEQ in IV 1 EA IV ONE (00:56)
[2023-12-21 05:00] VITALS: BP 102/62; TEMP 98.1; O2SAT 98
[2023-12-21 07:00] VITALS: BP 114/66
[2023-12-21 07:00] LABS: HEMATOCRIT 24.8 % (42.0-52.0); HEMOGLOBIN 8.5 g/dl (13.5-17.5); MEAN CORPUSCULAR HEMOGLOBIN 33.9 pg (27.0-33.0); MEAN CORPUSCULAR HGB CONC 34.3 g/dl (32.0-36.5); MEAN CORPUSCULAR VOLUME 98.8 fl (80.0-96.0); PLATELET COUNT, AUTOMATED 164 10^3/uL (150-450); RED BLOOD COUNT 2.51 10^6/uL (4.30-6.10); WHITE BLOOD COUNT 3.3 10^3/uL (4.0-10.0)
[2023-12-21 07:27] LABS: ALBUMIN 2.8 G/DL (3.2-5.2); ALKALINE PHOSPHATASE 40 U/L (46-116); ALT/SGPT 46 U/L (7.0-40); AST/SGOT 67 U/L (<34); BILIRUBIN,TOTAL 1.3 MG/DL (0.3-1.2); BLOOD UREA NITROGEN 10 MG/DL (9-23); CALCIUM LEVEL 8.2 MG/DL (8.5-10.1); CARBON DIOXIDE LEVEL 29 MMOL/L (20-31); CHLORIDE LEVEL 107 MMOL/L (98-107); CREATININE FOR GFR 0.51 MG/DL (0.70-1.30); GLOMERULAR FILTRATION RATE > 60.0 (>56); GLUCOSE, FASTING 91 MG/DL (60-100); POTASSIUM SERUM 3.5 MMOL/L (3.5-5.1); SODIUM LEVEL 140 MMOL/L (136-145); TOTAL PROTEIN 6.2 G/DL (5.7-8.2)
[2023-12-21] MEDS ORDERED: MULTIVITAMINS/MINERALS THERAP 1 TAB PO SCH (09:00)
[2023-12-21] MEDS ORDERED: FOLIC ACID 1MG TAB PO SCH (09:00)
[2023-12-21] MEDS ORDERED: FOLI1TAB11 PO (09:27)
[2023-12-21] MEDS ORDERED: THIA100TA PO (09:27)
[2023-12-21] MEDS ORDERED: FERR324T21 PO (09:27)
[2023-12-21 09:46] LABS: IRON (FE) 95 UG/DL (65-175)
[2023-12-21 09:47] LABS: PERCENT SATURATION 34.2 % (19.7-50.0); TOTAL IRON BINDING CAPACITY 278 UG/DL (250-425)
[2023-12-21 09:49] LABS: FOLATE 12.93 NG/ML (>5.4); VITAMIN B12 LEVEL 929 PG/ML (211-911)
== END 2023-12-21 10:10 | disposition home or self-care (01) ==
LOC: M ED 13:30 → M ED INP 13:31 → M MS5PR 21:39
PROVIDERS: ADMIT Internal Medicine Nephrology; ATTEND Internal Medicine Nephrology
DX: S30.1XXA Contusion of abdominal wall, initial encounter (principal); F10.230 Alcohol dependence with withdrawal, uncomplicated; K76.0 Fatty (change of) liver, not elsewhere classified; R16.0 Hepatomegaly, not elsewhere classified; K57.30 Diverticulosis of large intestine without perforation or abscess without bleeding; N40.0 Benign prostatic hyperplasia without lower urinary tract symptoms; K59.00 Constipation, unspecified; K44.9 Diaphragmatic hernia without obstruction or gangrene; F90.9 Attention-deficit hyperactivity disorder, unspecified type; M48.02 Spinal stenosis, cervical region; Z79.899 Other long term (current) drug therapy
CPT/HCPCS: 36415; 71045; 71260; 74174; 74177; 80048; 80053; 80076; 82607; 82728; 82746; 83550; 83690; 83735; 83880; 85025; 85027; 85610; 85730; 86850; 86900; 86901; 87631; 93005; 96361; 96374; 96375; 96376; 99285; G0378; Q9967

== ENCOUNTER 2025-03-30 10:15 | Inpatient (IN) | payer MEDICARE, OTHER ==
[~2025-03-30] VITALS: Ht 162.6 cm; Wt 74.0 kg
[~2025-03-30 10:15] MED LIST changes: +ALDA25TA2 PO; +D3 H10002 PO; +FERR324T21 PO; +FOLI1TAB11 PO; +FURO40TA2 PO; +LACT20EL PO; +LEVO25TA5 PO; +LIDO1ADH93 TOP; +MAGN400T33 PO; +METH-1164 PO; +MIDO5TA PO; +THERTAB19 PO; +THIA100TA PO
[2025-03-30 11:56] LABS: BASO # 0.1 10^3/uL (0.0-0.2); BASO % 2.0 % (0.0-1.0); EOS # 0.1 10^3/uL (0.0-0.5); EOS % 2.2 % (0.0-3.0); LYMPH # 1.4 10^3/uL (1.5-5.0); LYMPH % 26.7 % (24.0-44.0); MONO # 0.6 10^3/uL (0.0-0.8); MONO % 12.0 % (2.0-8.0); NEUTROPHILS # 2.9 10^3/uL (1.5-8.5); NEUTROPHILS % 56.9 % (36.0-66.0); PLATELET COUNT, AUTOMATED 184 10^3/uL (150-450)
[2025-03-30 12:17] LABS: ALT/SGPT 25.0 U/L (7.0-40); AST/SGOT 60.0 U/L (<34); CALCIUM LEVEL 8.5 MG/DL (8.5-10.1); CARBON DIOXIDE LEVEL 25.0 MMOL/L (20-31); CHLORIDE LEVEL 101.0 MMOL/L (98-107); CREATININE FOR GFR 1.1 MG/DL (0.70-1.30); GLOMERULAR FILTRATION RATE 78.8 (>56); POTASSIUM SERUM 4.4 MMOL/L (3.5-5.1); SODIUM LEVEL 136.0 MMOL/L (136-145)
[2025-03-30 14:05] LABS: INR 1.64
[2025-03-30] MEDS ORDERED: HOME MED LIST COMPLETE! XX SCH (14:50)
[2025-03-30] MEDS ORDERED: ISOVUE-370 76% 100 ML VIAL As Ordered ONE (15:49)
[2025-03-30] MEDS ORDERED: ACETAMINOPHEN 325 MG TAB PO PRN (18:20)
[2025-03-30] MEDS: FUROSEMIDE 40 MG/4 ML VIAL IV ONE ×2 (18:52→23:07)
[2025-03-30] MEDS: LACTULOSE 20 GM/30 ML SYRUP UDC PO SCH (23:05)
[2025-03-30] MEDS: KETOROLAC 30 MG/ML 1 ML VIAL IV PRN (23:05)
[2025-03-30] MEDS: PANTOPRAZOLE 40MG VIAL IV ONE (23:05)
[2025-03-31] VITALS (10 sets, daily range): BP systolic 89–102; BP diastolic 54–65; TEMP 97.5–98.8; O2SAT 97–99
[2025-03-31 06:35] LABS: BASO # 0.1 10^3/uL (0.0-0.2); BASO % 2.5 % (0.0-1.0); EOS # 0.2 10^3/uL (0.0-0.5); EOS % 3.7 % (0.0-3.0); LYMPH # 1.3 10^3/uL (1.5-5.0); LYMPH % 25.8 % (24.0-44.0); MONO # 0.8 10^3/uL (0.0-0.8); MONO % 14.6 % (2.0-8.0); NEUTROPHILS # 2.7 10^3/uL (1.5-8.5); NEUTROPHILS % 53.2 % (36.0-66.0); PLATELET COUNT, AUTOMATED 154 10^3/uL (150-450)
[2025-03-31 07:07] LABS: CALCIUM LEVEL 8.2 MG/DL (8.5-10.1); CARBON DIOXIDE LEVEL 26 MMOL/L (20-31); CHLORIDE LEVEL 102 MMOL/L (98-107); CREATININE FOR GFR 0.91 MG/DL (0.70-1.30); GLOMERULAR FILTRATION RATE > 90.0 (>56); POTASSIUM SERUM 4.3 MMOL/L (3.5-5.1); SODIUM LEVEL 137 MMOL/L (136-145)
[2025-03-31] MEDS ORDERED: FUROSEMIDE 40 MG/4 ML VIAL IV SCH (09:00)
[2025-03-31] MEDS ORDERED: SPIRONOLACTONE 50 MG TAB PO SCH (09:00)
[2025-03-31] MEDS: MIDODRINE 5 MG TAB PO SCH (09:08)
[2025-03-31] MEDS: PANTOPRAZOLE 40MG TAB PO SCH (09:09)
[2025-03-31] MEDS: ENOXAPARIN 40 MG/0.4 ML SYRINGE (J1650 PER 10MG) SC SCH (09:09)
[2025-03-31 11:26] LABS: APPEARANCE, BODY FLUID CLEAR (CLEAR); ASCITES FL COLOR YELLOW (COLORLESS); SOURCE, BODY FLUID ASCITES
[2025-04-01 03:33] VITALS: BP 98/60; TEMP 99; O2SAT 97
[2025-04-01 04:00] VITALS: BP 98/60; TEMP 99; O2SAT 97
[2025-04-01 05:29] LABS: BASO # 0.1 10^3/uL (0.0-0.2); BASO % 1.4 % (0.0-1.0); EOS # 0.2 10^3/uL (0.0-0.5); EOS % 2.6 % (0.0-3.0); LYMPH # 1.6 10^3/uL (1.5-5.0); LYMPH % 27.6 % (24.0-44.0); MONO # 0.8 10^3/uL (0.0-0.8); MONO % 13.2 % (2.0-8.0); NEUTROPHILS # 3.2 10^3/uL (1.5-8.5); NEUTROPHILS % 54.7 % (36.0-66.0); PLATELET COUNT, AUTOMATED 159 10^3/uL (150-450)
[2025-04-01 05:47] LABS: CALCIUM LEVEL 7.9 MG/DL (8.5-10.1); CARBON DIOXIDE LEVEL 26 MMOL/L (20-31); CHLORIDE LEVEL 105 MMOL/L (98-107); CREATININE FOR GFR 0.69 MG/DL (0.70-1.30); GLOMERULAR FILTRATION RATE > 90.0 (>56); POTASSIUM SERUM 4.0 MMOL/L (3.5-5.1); SODIUM LEVEL 140 MMOL/L (136-145)
[2025-04-01] MEDS: MULTIVITAMINS/MINERALS THERAP 1 TAB PO SCH (09:47)
[2025-04-01 09:48] VITALS: BP 100/62
[2025-04-01] MEDS: FOLIC ACID 1 MG TAB PO SCH (09:48)
[2025-04-01] MEDS: MAGNESIUM OXIDE 400 MG TAB PO SCH (09:48)
[2025-04-01] MEDS: FUROSEMIDE 40 MG TAB PO SCH (09:48)
[2025-04-01] MEDS: THIAMINE 100 MG TAB PO SCH (09:48)
[2025-04-01] MEDS: SPIRONOLACTONE 50 MG TAB PO SCH (09:49)
[2025-04-01] MEDS ORDERED: FURO40TA2 PO (10:43)
[2025-04-01] MEDS ORDERED: MAGN400T33 PO (10:43)
[2025-04-01] MEDS ORDERED: ALDA50TA2 PO (10:43)
[2025-04-01] MEDS ORDERED: MIDO5TA PO (10:43)
[2025-04-01] MEDS ORDERED: THIA100TA PO (10:43)
[2025-04-01] MEDS ORDERED: THERTAB19 PO (10:43)
[2025-04-01] MEDS ORDERED: PANT40TA29 PO (10:43)
[2025-04-01] MEDS ORDERED: FOLI1TAB11 PO (10:43)
[2025-04-01] MEDS ORDERED: LACT20EL PO (10:43)
[2025-04-01 11:45] VITALS: BP 100/59; TEMP 98.4; O2SAT 96
== END 2025-04-01 12:45 | disposition home or self-care (01) | DRG 433 ==
LOC: M ED 10:15 → M ED INP 18:18 → M MSPAV 03-31 15:31
PROVIDERS: ADMIT Internal Medicine Nephrology; ATTEND Internal Medicine
PROC: 0W9G3ZZ Drainage of Peritoneal Cavity, Percutaneous Approach (ICD-10-PCS; principal; 2025-03-31 10:35)
DX: K70.31 Alcoholic cirrhosis of liver with ascites (principal); D68.9 Coagulation defect, unspecified; K76.6 Portal hypertension; J98.11 Atelectasis; M48.02 Spinal stenosis, cervical region; R16.1 Splenomegaly, not elsewhere classified; K57.90 Diverticulosis of intestine, part unspecified, without perforation or abscess without bleeding; R60.1 Generalized edema; F90.9 Attention-deficit hyperactivity disorder, unspecified type; E88.09 Other disorders of plasma-protein metabolism, not elsewhere classified; F10.20 Alcohol dependence, uncomplicated; K21.9 Gastro-esophageal reflux disease without esophagitis; K44.9 Diaphragmatic hernia without obstruction or gangrene